=== PATIENT | female | born 1935 | race Caucasian/White ===

== ENCOUNTER 2023-05-12 07:16 | Day surgery (SDC) | payer MEDICARE, OTHER ==
[~2023-05-12 07:16] MED LIST: Dexamethasone 4 MG/ML SDV ONE; Glycopyrrolate 0.2 MG/ML 5 ML MDV ONE; Neostigmine Methylsulfate 1 MG/ML 5 ML Syringe ONE; Ondansetron 4 MG/2 ML SDV ONE; Propofol 200 MG/20 ML SDV ONE; Rocuronium 50 MG/5 ML Vial ONE; Succinylcholine 200 MG/10 ML MDV ONE; fentaNYL 250 MCG/5 ML SDV ONE
[2023-05-12 07:40] LABS: HEMATOCRIT 33.9 % (34.3-46.0); HEMOGLOBIN 11.2 g/dL (11.2-15.5); MEAN CORPUSCULAR VOLUME 93.9 fL (81.4-99.0); RED BLOOD CELL COUNT 3.61 M/uL (3.77-5.24); WHITE BLOOD CELL COUNT,WBC 5.4 K/uL (3.2-11.0)
[2023-05-12 08:00] LABS: A/G RATIO 1.1 (1.2-2.2); ALANINE AMINOTRANSFERASE,ALT 49 U/L (12-78); ALBUMIN 3.7 g/dL (3.4-5.0); ALKALINE PHOSPHATASE 145 U/L (46-116); ASPARTATE AMNIOTRANSFERASE,AST 38 U/L (15-37); BILIRUBIN TOTAL 0.6 mg/dL (0.2-1.0); BLOOD UREA NITROGEN,BUN 20 mg/dL (7-18); CALCIUM 8.9 mg/dL (8.5-10.1); CARBON DIOXIDE,CO2 30 mmol/L (21-32); CHLORIDE,CL 100 mmol/L (100-108); CREATININE 0.7 mg/dL (0.6-1.0); EST CRCL DRUG DOSING (CG) 43.53 mL/min; ESTIMATED GFR 84 mL/min (>60); GLUCOSE RANDOM 95 mg/dL (74-106); MAGNESIUM 2.2 mg/dL (1.8-2.4); PHOSPHORUS 3.6 mg/dL (2.5-4.9); POTASSIUM,K 3.6 mmol/L (3.6-5.2); PROTEIN TOTAL,TP 7.1 g/dL (6.4-8.2); SODIUM,NA 138 mmol/L (140-148)
[2023-05-12] MEDS ORDERED: Dextrose 5%-Lactated Ringers 1,000 ML IV SCH ×2 (08:00→12:00)
[2023-05-12] MEDS ORDERED: Bupivacaine 0.5% 50 ML MDV ONE (08:04)
[2023-05-12] MEDS ORDERED: Lidocaine 1% with EPINEPHrine 1:100,000 50 ML MDV ONE (08:04)
[2023-05-12 08:12] LABS: ANION GAP 11.6 mmol/L (5.0-14.0)
[2023-05-12] MEDS ORDERED: fentaNYL 100 MCG/2 ML SDV ONE (08:38)
[2023-05-12] MEDS ORDERED: Midazolam 1 MG/ML 2 ML SDV ONE (08:38)
[2023-05-12] MEDS ORDERED: ceFAZolin 2 GM in Premix Bag 1 BAG IV ONE (08:45)
[2023-05-12] MEDS ORDERED: Linezolid 600 MG/300 ML Premix Bag IRR ONE (09:19)
[2023-05-12] MEDS ORDERED: Propofol 200 MG/20 ML SDV ONE (09:46)
[2023-05-12] MEDS ORDERED: Ondansetron 4 MG/2 ML SDV IVPUSH PRN (11:58)
[2023-05-12] MEDS: traMADol 50 MG Tab PO PRN ×2 (15:48→22:31)
[2023-05-12] MEDS: ceFAZolin 1 GM in Premix Bag 1 BAG IV SCH ×2 (15:48→22:25)
[2023-05-12] MEDS: Acetaminophen 500 MG Tab PO SCH (17:20)
[2023-05-12] MEDS ORDERED: Acetaminophen 500 MG Tab PO PRN (18:00)
[2023-05-13] MEDS: Acetaminophen 500 MG Tab PO SCH (01:21)
[2023-05-13] MEDS: traMADol 50 MG Tab PO PRN (04:40)
[2023-05-13] MEDS: ceFAZolin 1 GM in Premix Bag 1 BAG IV SCH (07:40)
[2023-05-13] MEDS ORDERED: Magnesium Hydroxide 400 MG/5 ML Susp 30 ML Cup PO ONE (09:00)
[2023-05-13] MEDS ORDERED: Cetirizine 10 MG Tab PO SCH (09:00)
== END 2023-05-13 10:00 | disposition home or self-care (01) ==
LOC: JP.SDS 07:16 → JP.2SS 10:45 → JP.SDS 05-13 10:00
PROVIDERS: ATTEND Surgery
DX: K40.00 Bilateral inguinal hernia, with obstruction, without gangrene, not specified as recurrent (principal); Z87.891 Personal history of nicotine dependence; Z79.899 Other long term (current) drug therapy
CPT/HCPCS: 36415; 49507; 64772; 80053; 83735; 84100; 85027; A9270; C1713; C1781; J0131; J0690; J2020; J2250; J2704; J3010; J3490; J7121; J0330; J1100; J2405; J2710

== ENCOUNTER 2024-05-11 09:14 | Emergency (ER) | payer MEDICARE, OTHER ==
[2024-05-11 10:52] LABS: BASOPHILS PERCENT AUTO 0.3 % (0.1-1.3); HEMATOCRIT 31.1 % (34.3-46.0); HEMOGLOBIN 10.7 g/dL (11.2-15.5); IMMATURE GRAN ABSOLUTE AUTO 0.03 K/uL (0.00-0.23); IMMATURE GRAN PERCENT AUTO 0.5 % (0.0-0.7); LYMPHOCYTES ABSOLUTE AUTO 0.64 K/uL (0.8-3.3); LYMPHOCYTES PERCENT AUTO 10.7 % (11.4-47.7); MEAN CORPUSCULAR HEMOGLOBIN 31.3 pg (31.6-35.5); MEAN CORPUSCULAR HGB CONC 34.4 g/dL (31.6-35.5); MEAN CORPUSCULAR VOLUME 90.9 fL (81.4-99.0); MONOCYTES ABSOLUTE AUTO 0.31 K/uL (0.20-0.90); MONOCYTES PERCENT AUTO 5.2 % (3.3-12.6); NEUTROPHILS ABSOLUTE AUTO 4.96 K/uL (1.0-7.6); NEUTROPHILS PERCENT AUTO 83.3 % (40.0-78.1); PLATELET COUNT,PLT 208 K/uL (130-375); RED BLOOD CELL COUNT 3.42 M/uL (3.77-5.24)
[2024-05-11 10:53] LABS: BASOPHILS ABSOLUTE AUTO 0.02 K/uL (0.00-0.10)
[2024-05-11 11:23] LABS: A/G RATIO 1.1 (1.2-2.2); ALANINE AMINOTRANSFERASE,ALT 33 U/L (12-78); ALBUMIN 3.7 g/dL (3.4-5.0); ALKALINE PHOSPHATASE 109 U/L (46-116); ASPARTATE AMNIOTRANSFERASE,AST 28 U/L (15-37); BILIRUBIN TOTAL 0.8 mg/dL (0.2-1.0); BLOOD UREA NITROGEN,BUN 23 mg/dL (7-18); CALCIUM 9.3 mg/dL (8.5-10.1); CARBON DIOXIDE,CO2 27 mmol/L (21-32); CHLORIDE,CL 101 mmol/L (100-108); CREATININE 0.8 mg/dL (0.6-1.0); EST CRCL DRUG DOSING (CG) 35.59 mL/min; ESTIMATED GFR 71 mL/min (>60); GLUCOSE RANDOM 125 mg/dL (74-106); POTASSIUM,K 3.7 mmol/L (3.6-5.2); PROTEIN TOTAL,TP 7.1 g/dL (6.4-8.2); SODIUM,NA 137 mmol/L (140-148)
[2024-05-11 11:25] LABS: ANION GAP 12.7 mmol/L (5.0-14.0)
[2024-05-11] MEDS: Sodium Chloride 0.9% 1,000 ML IV SCH (12:12)
[2024-05-11] MEDS: Sodium Chloride 0.9% 10 ML Syringe FLUSH PRN (12:13)
[2024-05-11] MEDS: Sodium Chloride 0.9% 100 ML IV SCH (13:05)
[2024-05-11] MEDS: Iopamidol 755 Mg/ML 100 ML Bottle IV SCH (13:05)
== END 2024-05-11 15:15 | disposition home or self-care (01) ==
LOC: JP.ED 09:14
DX: M25.561 Pain in right knee (principal); M25.562 Pain in left knee; R26.81 Unsteadiness on feet; Z90.710 Acquired absence of both cervix and uterus; Z79.899 Other long term (current) drug therapy
CPT/HCPCS: 36415; 70450; 70496; 70498; 73562; 80053; 83605; 85025; 86140; 99285; J3490; J7030; Q9967